=== PATIENT | male | born 1955 | race Caucasian/White ===

== ENCOUNTER 2021-05-31 12:27 | Outpatient (REF) | payer BC, SELFPAY ==
[2021-06-02 12:54] LABS: COVID-19 RT-PCR UVMMC Result Negative (Negative)
== END 2021-05-31 12:28 | disposition home or self-care (01) ==
LOC: LBN 12:27
PROVIDERS: Visit Provider Physician Assistant
DX: J02.8 Acute pharyngitis due to other specified organisms (principal); B96.89 Other specified bacterial agents as the cause of diseases classified elsewhere; Z20.822 Contact with and (suspected) exposure to COVID-19
CPT/HCPCS: U0003; 87070